=== PATIENT | female | born 1945 | race Caucasian/White ===

== ENCOUNTER → 2018-03-13 16:24 | Outpatient (CLI) | payer MEDICARE, SELFPAY ==
--- NOTE | 2018-03-13 | IMM_PTH ---
PATIENT: GIANNI VERAS LOC: [facility] U#:[id number] AGE/SX: 79/F ROOM: RE03/13/[address]: Dr. Brittany Camilo MD : 1945 BED: DIS: SPEC #: [id number] RECD: 03/17/18 16:53 STATUS: SARMAD REQ #: [id number] HENRIK: 03/13/18 00:[address]: Brittany Camilo DEPT: IMMUNOHISTOCHEMISTRY RECD BY: Melissa Camacho ENTERED: 03/19/18 16:55 SP TYPE: IMMUNO OTHR DR: Dr. Bogdan Lane MD Tissues: Left breast, NOS Procedures: CALPONIN-1 (add) CK5-6 (add) CK8 (add) E-CAD (add) HER2 ROSALINDA (add) KI-67 (add) P53 (add) TX (add) IN SITU HYBRIDIZATION P40 (add) ER (initial) PHYSICIAN & INSTITUTION [place] [phone] SPECIMEN INFORMATION: Tissue Source: Left breast needle core biopsy Clinical Info: Abnormal mammogram/ultrasound Specimen Number: [id number] CPT code: 07466, 42952 x6, 52656 x3 METHODOLOGY: Deparaffinized sections of prefer/formalin-fixed tissue or PAP/DQ stained slides are incubated with monoclonal/polyclonal antibodies/oligonucleotide probes. Localization is made via biotin free immunoperoxidase method. Appropriate controls are performed and reacted as expected. Results on target cell population are indicated in the following table: RESULTS: ANTIBODY / CLONE RESULT P53 (DO-7) negative Ki-67 (30-9) positive CK8 (35ffgtD84) positive CK5-6 (D5 & 1684) negative Calponin-1 (AN735D) negative P40 (BC28) negative E-Cad (ECH-6) positive MORPHOMETRIC ANALYSIS ER (clone 6F11) 90%, moderate TX (clone 16/1E2) 0% Her-2Neu (clone CB11) 1-2+ The prognostic test for HER2 is performed on formalin-fixed paraffin embedded tissue. A 3+ (positive) staining pattern is defined as intense, homogeneous, complete, circumferential membranous staining in >10% of contiguous tumor cells. A similar weak (2+) staining pattern is interpreted as equivocal. DIEGO follow-up testing is recommended for all equivocal cases. Positivity/negativity for ER/TX is reported if > or < 1% of the tumor cells are immuno- reactive, respectively. The ASCO/CAP criteria is used for scoring. Reference: Journal of Clinical Oncology, 2013; 31:3809-1115 & 2010; 16:6401-0961. Duration of fixation: 51 Hrs; Sample Adequate: Yes. These assays have not been validated on decalcified tissues. Results should be interpreted with caution given the likelihood of false negativity on decalcified specimens. These tests were developed and their performance characteristics determined by [facility]. They may not have been cleared or approved by the U.S. Food and Drug Administration. The FDA has determined that such clearance or approval is not necessary. INTERPRETATION: Left breast, needle core biopsy: Invasive ductal carcinoma. Positive for estrogen receptors (favorable prognostic indicator). Negative for progesterone receptors (unfavorable prognostic indicator). Equivocal for overexpression of BDV8rlz. AM:ramiro 03/24/18 ADDENDUM ADDENDUM ADDENDUM ADDENDUM ADDENDUM ADDENDUM ADDENDUM ADDENDUM ADDENDUM ADDENDUM ADDENDUM ADDENDUM ADDENDUM ADDENDUM ADDENDUM ADDENDUM ADDENDUM ADDENDUM ADDENDUM ADDENDUM ADDENDUM 03/25/2018 13:25 ADDENDUM 03/25/2018 13:25 ADDENDUM 03/25/2018 13:25 ADDENDUM 03/25/2018 13:25 ADDENDUM 03/25/2018 13:25 IN SITU HYBRIDIZATION (DIEGO) FOR HER2 Interpretation: Not Amplified HER2 : CEP-17 Ratio: 1.37 Average HER2 Signal: 2.4 Average CEP-17 Signal: 1.75 Number of Tumor Cells Scanned: 50 Interpretative Information: The INFORM HER2 Dual DIEGO DNA Probe Cocktail assay is performed on formalin-fixed paraffin embedded tissue and determines HER2 gene status by detecting HER2 copies via silver in situ hybridization (SISH) and Chromosome 17 copies via chromogenic red in situ hybridization on tumor cells. A minimum of 20 cells representing > 10% of contiguous and homogeneous invasive tumor cells were analyzed. HER2 gene status is classified as Non-amplified (HER2/Chr17 ratio < 2.0) or Amplified (HER2/Chr17 ratio greater than or equal to 2.0). If the resulting HER2/Chr17 ratio falls within 1.8 - 2.2 (Borderline), retesting by FISH is recommended. Reference: Graham AC, Joey BROWN, Parth DG, et al: Recommendations for Human Epidermal Growth Factor Receptor 2 Testing in Breast Cancer: [place] Society of Clinical Oncology / College of [place] [employer] Clinical Practice Guideline Update. J Clin Oncol 31:5941-5454, 2013. / AM:ramiro 03/25/18
--- NOTE | 2018-03-13 | BRBX_PTH ---
PATIENT: GIANNI VERAS LOC: [facility] U#:[id number] AGE/SX: 79/F ROOM: RE03/13/[address]: Dr. Brittany Camilo MD : 1945 BED: DIS: SPEC #: [id number] RECD: 03/13/18 11:12 STATUS: SARMAD STERLING #: [id number] HENRIK: 03/13/18 00:[address]: Brittany Camilo DEPT: SURGICAL PATHOLOGY RECD BY: Tab Linn ENTERED: 03/19/18 11:12 SP TYPE: BREAST BX OTHR DR: Dr. Bogdan Lane MD Tissues: Left breast, NOS Procedures: Surgery Specimen Level IV HEADER OPERATION: Ultrasound-guided left breast needle core biopsy PRE-OP DIAGNOSIS: Abnormal mammogram/ultrasound TISSUE SUBMITTED: Left breast needle core biopsy ISCHEMIC TIME: 3 minutes FIXATION TIME: 51 hours MICROSCOPIC DIAGNOSIS Left breast, ultrasound-guided needle core biopsy: Invasive ductal carcinoma: Nuclear grade ? 2/3 Maximal length ? 8 mm AM:ramiro 03/20/18 COMMENT ER/SD/Nfy0dcm studies are being performed on sections of tumor and the results from this study will be reported separately ([id number]). This case was discussed with Dr. Camilo 03/17/18. Case has been reviewed in consultation with Dr. Patel who concurs with the above diagnosis. IDC:BIBI MICROSCOPIC DESCRIPTION Slides are reviewed. GROSS DESCRIPTION Received in fixative is one container labeled with the patient's name and designated left breast biopsy. The specimen consists of multiple elongated fragments of betancourt-yellow fibroadipose tissue that in aggregate measure 2 x 0.5 x 0.1 cm. The entire specimen is submitted in one cassette. / BIBI:ramiro 03/16/18 TC:0 CPT: 24594
== END ==
PROVIDERS: Family Provider Family Medicine; PCP Family Medicine; Visit Provider Surgery
DX: C50.912 Malignant neoplasm of unspecified site of left female breast (principal)
CPT/HCPCS: 88305; 88341; 88342; 88368

== ENCOUNTER 2018-04-06 07:34 | Day surgery (SDC) | payer MEDICARE, SELFPAY ==
--- NOTE | 2018-04-06 | AXNB_PTH ---
PATIENT: GIANNI VERAS [place] [facility] [place][id number] AGE/SX: 72/F ROOM: RE04/06/[address]: Dr. Brittany Camilo MD : 1945 BED: DIS: 04/06/2018 SPEC #: [id number] RECD: 04/06/18 11:27 STATUS: SARMAD STERLING #: [id number] HENRIK: 04/06/18 00:[address]: Brittany Camilo DEPT: SURGICAL PATHOLOGY RECD BY: Melissa Camacho ENTERED: 04/06/18 11:59 SP TYPE: AX NODE BX OTHR DR: Dr. Bogdan Lane MD Tissues: A - Axillary lymph node, NOS B - Axillary lymph node, NOS C - Left breast, NOS Procedures: Frozen Section (charge) Surgery Specimen Level IV HEADER OPERATION: Breast lumpectomy, sentinel node biopsy PRE-OP DIAGNOSIS: Left breast cancer TISSUE SUBMITTED: A. Left axillary sentinel lymph node, biopsy, B. Additional left axillary sentinel lymph nodes, biopsy, C. Left breast tissue, one long suture-lateral border, one short suture-superior border, two short suture-posterior border FROZEN SECTION DIAGNOSIS A. Left axillary sentinel lymph node, biopsy: One out of one lymph node negative for carcinoma. B. Additional left axillary sentinel lymph nodes, biopsy: Two out of two lymph nodes negative for carcinoma. AM:ramiro 04/06/18 MICROSCOPIC DIAGNOSIS A. Left axillary sentinel lymph node, biopsy: One lymph node, negative for metastatic carcinoma. See comment. B. Additional left axillary sentinel lymph node, biopsy: Two out of two lymph nodes, negative for metastatic carcinoma. See comment. C. Left breast lumpectomy: Invasive ductal carcinoma. See Cancer Summary below. BREAST CANCER SUMMARY (including specimen A, B, and C): Specimen - partial breast Procedure - excision with wire guided localization Lymph node sampling - sentinel lymph nodes Specimen integrity - single intact specimen Specimen size - 5.5 x 4.5 x 2 cm Specimen laterality - left Tumor site - not specified Tumor size - 1 x 0.6 x 0.5 cm Tumor focality - single focus of invasive carcinoma Macroscopic and Microscopic extent of tumor: Skin - skin is not present Nipple - not applicable Skeletal muscle - no skeletal muscle is present Ductal carcinoma in situ - no ductal carcinoma in situ is present Lobular carcinoma in situ - not identified Histologic type of invasive ca - invasive ductal carcinoma (no special type) Histologic grade: [place] histologic grade: Glandular/tubular differentiation - 3 Nuclear pleomorphism - 2 Mitotic count - 1 Overall grade - 2 (score - 6) Margins - uninvolved by invasive carcinoma: Invasive carcinoma is 0.6 cm away from the closest inferior and posterior margins. Treatment effect: Response to presurgical (neoadjuvant) therapy. no known presurgical therapy. Lymph vascular invasion - not identified. Dermal lymph vascular ?not applicable Lymph nodes: Number of sentinel lymph nodes examined ? 3 Total number of lymph nodes examined (sentinel and nonsentinel) - 3 Number of lymph nodes with macrometastases, micrometastases, and isolated tumor cells ? 0 Method of evaluation of sentinel lymph nodes ? H&E, multiple levels, and IHC. Distant metastases ? not applicable Additional pathologic findings ? fibrocystic changes and intraductal hyperplasia without atypia Ancillary studies ? (previously performed [id number], [id number]): ER positive (90%, moderate) [place] negative (0%) [id number] equivocal (1-2+) RJW9ows by Dual test not amplified HER2:CEP-27 ratio 1.37 Average HER2 signal 2.4 Average CEP-17 Signal 1.75 Microcalcification ? present in both carcinoma and nonneoplastic tissue. Clinical history ? please make reference to previous specimen [id number] left breast, ultrasound guided core biopsy diagnosis invasive ductal carcinoma. PATHOLOGIC STAGE: pT1c, pN0 (sn), MX The above summary is in compliance with [employer] of [place] [employer] (CAP) Cancer Protocols Checklist and [place] Joint Committee on Cancer (AJCC), Staging Manual, 8th Ed. BIBI:noe 04/09/18 COMMENT A & B. The lymph nodes are negative for metastatic carcinoma on multiple H & E levels and immunohistochemical stains for cytokeratins ([id number]). Case has been reviewed in consultation with Dr. Aviles who concurs with the above diagnosis. IDC:AM MICROSCOPIC DESCRIPTION Slides are reviewed. GROSS DESCRIPTION A - Received fresh for frozen section consultation/diagnosis labeled with the patient's name is a specimen designated left axillary sentinel lymph node. The specimen consists of an ovoid fragment of pink-betancourt soft tissue measuring 1 x 0.5 x 0.3 cm. The specimen is totally submitted in one block for frozen section consultation. B - Received fresh for frozen section consultation/diagnosis labeled with the patient's name is a specimen designated additional left axillary sentinel lymph node. The specimen consists of an irregular fragment of betancourt-yellow fibrofatty tissue measuring 3 x 2 x 1 cm. Dissection reveals two nodules. One nodule measures 1 x 0.6 x 0.3 cm. The second nodule measures 0.5 x 0.3 x 0.1 cm. Both nodules are submitted in one block for frozen section consultation. C ? Received in fixative is one container labeled with the patient's name and designated left breast tissue. The specimen consists of a lumpectomy with wire localization measuring 5.5 x 4.5 x 2 cm and weighs 18.2 grams. The specimen is differentially inked as follows: anterior ? yellow, posterior ? black, superior ? blue, inferior ? green, medial ? red, lateral ? orange. Serial sections reveal a firm betancourt-white nodule measuring 1 x 0.6 x 0.5 cm located 0.6 cm from its closest (inferior margin of excision). This information is conveyed to the surgeon intraoperatively. The specimen is serially sectioned and totally submitted in 14 cassettes as follows: 1&2 ? mass, 3-14 ? remainder of specimen. Sections are submitted are infusion cycle. MICHEL:noe 04/06/18 TC:0 CPT: 48180 x3, 11273 x2, 02797
--- NOTE | 2018-04-06 | IMM_PTH ---
PATIENT: GIANNI VERAS [place] [facility] [place][id number] AGE/SX: 72/F ROOM: RE04/06/[address]: Dr. Brittany Camilo MD : 1945 BED: DIS: 04/06/2018 SPEC #: [id number] RECD: 04/09/18 10:49 STATUS: SARMAD REQ #: [id number] HENRIK: 04/06/18 00:[address]: Brittany Camilo DEPT: IMMUNOHISTOCHEMISTRY RECD BY: Shilpa Maki ENTERED: 04/09/18 10:50 SP TYPE: IMMUNO OTHR DR: Dr. Bogdan Lane MD Tissues: A - Axillary lymph node, NOS B - Axillary lymph node, NOS Procedures: CK7 (add) AE1 (add) AE1-3 (initial) PHYSICIAN & INSTITUTION [place] [id number] SPECIMEN INFORMATION: Tissue Source: A. Left axillary sentinel lymph node, biopsy, B. Additional left axillary sentinel lymph nodes, biopsy Clinical Info: Left breast cancer Specimen Number: [id number] CPT code: 48560, 90579 x3 METHODOLOGY: Deparaffinized sections of prefer/formalin-fixed tissue or PAP/DQ stained slides are incubated with monoclonal/polyclonal antibodies/oligonucleotide probes. Localization is made via biotin free immunoperoxidase method. Appropriate controls are performed and reacted as expected. Results on target cell population are indicated in the following table: RESULTS: ANTIBODY / CLONE RESULT Block A AE1-3 (AE1/AE3/PCK26) negative CK7 (OV-TL12/30) negative Block B AE1-3 (AE1/AE3/PCK26) negative CK7 (OV-TL12/30) negative These tests were developed and their performance characteristics determined by [facility]. They may not have been cleared or approved by the U.S. Food and Drug Administration. The FDA has determined that such clearance or approval is not necessary. INTERPRETATION: A. Left axillary sentinel lymph node, biopsy: One lymph node, negative for metastatic carcinoma B. Additional left axillary sentinel lymph nodes, biopsy: Two out of two lymph nodes, negative for metastatic carcinoma. BIBI:aurelia 04/09/18
--- NOTE | 2018-04-06 07:58 | BI_ITS ---
SURGICAL BREAST SPECIMEN RADIOGRAPH CLINICAL: Document presence of tissue clip marker in biopsy specimen. FINDINGS: Specimen shows presence of tissue clip marker. Electronically Signed: Matt Holm MD at 13:00 EDT Tel [phone], Service support , BI/Breast Biopsy Specimen
[2018-04-06 09:32] VITALS: BP 129/45; PULSE 75; RESP 16; TEMP 36.6; O2SAT 100; BMI 17.2
--- NOTE | 2018-04-06 10:45 | PCM.IMDPSTOP ---
Immediate Post-Op Note Date of Procedure: 04/06/18 Primary Surgeon/Physician: Brittany Camilo structural shop helper: Trevor Edward Pre-Operative Diagnosis: left breast cancer Post-Operative Diagnosis: same Surgery/Procedure Performed:: left breast lumpectomy via wire localization, left axillary sentinel lymph node biopsy via blue dye Description of Surgical Findings:: upper outer quadrant breast lesion, margins clear by pathology report in OR Estimated Blood Loss: < 5 ml Specimen's removed: left breast tissue, left axillary lymph leni tissue, left axillary sentinel lymph node Drains: none Type of Anesthesia:: General ASA Class: ASA2 Mod Systematic Disease - Admit VTE Documentation VTE Present on Admission: Yes
--- NOTE | 2018-04-06 10:47 | PCM.DC.BS ---
Discharge Diet: No Restrictions Discharge Activity: Return to Normal Activity, May not drive while taking narcotic pain medications. Lifting Restrictions: no lifting with left arm greater than 5 pounds until further notice Additional Activity Instructions:: wear supportive bra during the day Call your doctor if your incision/area has: Continuous Slow Oozing, Foul Smelling Discharge Call your doctor if you observe: Fever of 101 or Higher Additional Dressing/Incision Instructions:: Leave dressing intact - no need to change. May shower and get wet. Do not soak - no tub baths/swimming. May apply ice to area for comfort Allergies/Adverse Reactions: Allergies balsam alexia Allergy (Verified 03/30/18 09:58) Unknown dapsone Allergy (Verified 03/30/18 09:58) Unknown gluten Allergy (Verified 03/30/18 09:58) Unknown neomycin Allergy (Verified 03/30/18 09:58) Unknown nickel Allergy (Verified 03/30/18 09:58) Unknown potassium Allergy (Verified 03/30/18 09:58) Unknown Medications to take at Discharge Ceramides 1,3,6-11 [Cerave] 355 ml TP BID 03/23/15 Lisinopril [Zestril] 2.5 mg PO DAILY 03/23/15 Aspirin [Aspirin, Baby] 81 mg PO DAILY@0800 03/27/15 Cetirizine HCl [Zyrtec] 10 mg PO DAILY 03/30/18 Pravastatin [Pravachol] 10 mg PO QHS 03/30/18 Please Follow Up With: Brittany Camilo MD - call When: to be seen on April 10, at 1:30, thank you
[2018-04-06] MEDS: Cefazolin 2 GM in 0.9% Normal Saline 100 ML IV (10:49)
--- NOTE | 2018-04-06 10:50 | OP.PCM_ITS ---
Report of Operation Date of Procedure: 04/06/18 Pre-Operative Diagnosis: left breast cancer Post-Operative Diagnosis: same Surgery/Procedure Performed:: left breast lumpectomy via wire localization, left axillary sentinel lymph node biopsy via blue dye Description of Surgical Findings:: upper outer quadrant left breast lumpectomy, margins clear by pathology in OR, three out of three lymph nodes - negative for metastatic disease senior mechanical estimator: Trevor Edward Type of Anesthesia:: General Anesthesiologist: Jermaine Song Specimen's removed: left breast tissue, left axillary lymph leni tissu Estimated Blood Loss (mL): < 5 Fluids Replaced: 1100 ml RL Description of Procedure: After informed consent was given, the patient was brought into the Breast Stereotactic Radiology suite and placed in the prone position on the Ramos stereotactic table. Appropriate time out protocol was followed. The patient?s left breast was placed in the opening at the head of the table. A family coach compression mammogram was then obtained for the lesion to be in the biopsy window. The marker clip that was previously placed was identified. Stereo pictures of the lesion were then taken for XYZ coordinates. The Kopans needle was then positioned where it would be entering into the patient?s left breast. The skin at this site was then cleansed with a surgical skin preparation. The skin and subcutaneous tissues at this site were then infiltrated with 1% xylocaine. The Kopans needle was then positioned into the patient?s breast at the proper coordinates of depth. A family coach film was obtained which revealed the wire in proper position. The patient was then placed in the supine position and the wire was taped into place. A unilateral mammogram in the CC and MLO view were then taken for use in the OR. The patient tolerated this portion of the procedure well and was brought to the AC awaiting surgery in the OR. The patient was then brought to the Operating Room and placed on the operating table in the supine position. Appropriate time out protocol was followed. She was then placed under general anesthesia. 2 cc of diluted 50:50 methylene blue dye was then injected into the periareolar area and around the biopsy cavity with a 25 g needle. Gentle massage was then done for a few minutes. The patient's left chest and neck area was then prepped with a sterile surgical skin preparation and appropriate sterile surgical drapes were placed. A skin incision was made in the inferior portion of the hair bearing area of the left axilla. It was carried through to the subcutaneous tissues using electrocautery. Any hemorrhage was controlled with electrocautery. A Weitlaner retractor was used for increased operative exposure. The blue lymphatic vessels were then followed by blunt dissection until blue colored lymph leni tissue was identified. These were from the surrounding tissue by blunt dissection and the vascular pedicles ligated with ligaclips. The lymph leni tissue was then forwarded to pathology for frozen section. Pathology revealed that three lymph nodes were negative for metastatic disease. Linda was then applied into the axillary wound. The dermis was approximated with interrupted 2-0 vicryl suture. A horizontal mattress suture into the dermis was placed with 3-0 vicryl suture. The skin incision was then closed with running subcuticular 4-0 monocryl suture. Cavilon and steristrips were then placed to reinforce the skin closure and proper sterile dressings were applied. The left breast lumpectomy was then next. A wire had already been placed in the stereotactic biopsy room in the radiology department as described above. The skin and subcutaneous tissues at the site of the breast lesion was then infiltrated with local anesthetic. A transverse curvilinear skin incision was then made with a 15 blade scalpel in the upper outer aspect of the breast. It was carried down through to the subcutaneous tissues. Hemostasis was controlled with electrocautery. The wire was used to identify the tissue for resection. The breast tissue surrounding the wire was then carefully palpated out and from the surrounding tissues using electrocautery. The breast tissue, once from the breast, was then forwarded to the radiology department, where a specimen mammogram revealed that the marker clip was within the specimen. I noted this. The breast tissue was then forwarded to pathology for analysis. Pathology review revealed that the closest margin was about 5mm. The wound cavity was carefully examined. No further suspicious tissue was palpated or visualized. Hemostasis was carefully controlled with electrocautery. The subdermal tissues were then approximated with vicryl suture. The incision was then reapproximated close using running monocryl suture. Cavilon and steristrips were then placed to reinforce the skin closure. A sterile dressing was then applied. The patient was then brought to the Recovery Room in stable condition. - Complications none noted - Admit VTE Documentation VTE Present on Admission: Yes VTE Mechan Device Prophylaxis: SCD's
[2018-04-06] MEDS: Methylene Blue 1% 100 MG/10 ML VIAL (10:56)
[2018-04-06 12:35] VITALS: BP 129/45; BP 92/68; PULSE 82; RESP 16; TEMP 35.9; O2SAT 100
[2018-04-06 12:45] VITALS: BP 124/58; BP 129/45; PULSE 80; RESP 16; O2SAT 100
[2018-04-06 13:00] VITALS: BP 110/41; BP 129/45; PULSE 72; RESP 16; O2SAT 100
[2018-04-06 13:06] VITALS: BP 117/52; BP 129/45; PULSE 75; RESP 16; TEMP 36.2; O2SAT 100
[2018-04-06 13:55] VITALS: BP 129/45; BP 129/67; PULSE 73; RESP 16; TEMP 36.2; O2SAT 99
== END 2018-04-06 13:57 | disposition home or self-care (01) ==
LOC: SDC 07:35 → AC 07:36
PROVIDERS: Family Provider Family Medicine; PCP Family Medicine; Visit Provider Surgery
PROC: (CPT 19301; principal; 2018-04-06 10:15)
DX: C50.412 Malignant neoplasm of upper-outer quadrant of left female breast (principal); I10 Essential (primary) hypertension; E78.00 Pure hypercholesterolemia, unspecified; Z79.82 Long term (current) use of aspirin; Z79.899 Other long term (current) drug therapy; Z86.010 Personal history of colon polyps
CPT/HCPCS: 19301; 38525; 38900; 19281; 76098; 88305; 88331; 88341; 88342; J7050; J7120; J2405; J3490